=== PATIENT | female | born 1975 | race Caucasian/White ===

== ENCOUNTER 2019-02-23 05:03 | Inpatient (IN) | payer MEDICAID ==
[2019-02-23] MEDS ORDERED: Sodium Chloride 0.9% 1,000 ML IV ONE (05:35)
[2019-02-23 06:00] LABS: BASO % 0.7 % (0.0-2.0); EOS # 0.1 K/uL (0.0-0.7); EOS % 2.5 % (0.0-4.0); HEMOGLOBIN 11.7 g/dL (11.0-16.0); LYMPH # 1.8 K/uL (1.0-4.3); LYMPH % 34.8 % (20.0-40.0); MEAN CELL VOLUME 84.1 fL (81.0-99.0); MEAN CORPUSCULAR HEMOGLOBIN 28.4 pg (27.0-31.0); MEAN CORPUSCULAR HGB CONC 33.8 g/dL (33.0-37.0); MEAN PLATELET VOLUME 9.2 fL (7.2-11.7); MONO # 0.3 K/uL (0.0-0.8); MONO % 6.4 % (0.0-10.0); NEUT # 2.8 K/uL (1.8-7.0); NEUT % 55.6 % (50.0-75.0); NRBC % 0.1 % (0.0-2.0); RBC 4.1 Mil/uL (3.80-5.20); RED CELL DISTRIBUTION WIDTH 13.6 % (11.5-14.5); WHITE BLOOD COUNT 5.1 K/uL (4.8-10.8)
--- NOTE | 2019-02-23 06:07 | C.PDOC ---
History Of Present Illness 43 y/o female. approx 10 weeks preg with a missed per pt, presents with sudden onset heavy vaginal bleeding since 2 am, using 4 pads at a time and passing large clots.unsire if any tissue passed. some abdominal pain. Time Seen by Provider: 02/23/19 05:17 Chief Complaint (Nursing): Female Genitourinary History Per: Patient History/Exam Limitations: no limitations Onset/Duration Of Symptoms: Hrs (4) Current Symptoms Are (Timing): Still Present Severity: Moderate Quality Of Discomfort: Cramping Associated Symptoms: denies: Fever, Chills, Nausea Alleviating Factors: None Abnormal Vaginal Bleeding: Yes : 5 Para: 1 Past Medical History Reviewed: Historical Data, Nursing Documentation, Vital Signs Vital Signs: Last Vital Signs Temp 98.3 F 02/23/19 05:10 Pulse 86 02/23/19 05:10 Resp 14 02/23/19 05:10 BP 140/92 H 02/23/19 05:10 Pulse Ox 98 02/23/19 05:10 Family History: States: Unknown Family Hx - Social History Hx Alcohol Use: No Hx Substance Use: No - Immunization History Hx Tetanus Toxoid Vaccination: Yes Hx Influenza Vaccination: No Hx Pneumococcal Vaccination: No Review Of Systems Constitutional: Negative for: Fever, Chills Cardiovascular: Negative for: Chest Pain Respiratory: Negative for: Cough Gastrointestinal: Positive for: Abdominal Pain Genitourinary: Positive for: Vaginal Bleeding, Pelvic Pain Skin: Negative for: Rash Neurological: Negative for: Weakness, Numbness Physical Exam - Physical Exam Appears: Non-toxic, Other (anxous) Skin: Warm, Dry, No Pale Head: Atraumatic, Normacephalic Cardiovascular: Rhythm Regular Respiratory: No Decreased Breath Sounds Gastrointestinal/Abdominal: Bowel Sounds, Soft, Tenderness (mild., lower abdomen), No Distention, No Guarding, No Rebound Pelvic: Normal External Exam, Vaginal Bleeding (copious with clots), Cervix Open (finger), Other (chaperoned by pt's female family member and YAO Sousa) ED Course And Treatment - Laboratory Results Result Diagrams: 02/23/19 05:56 02/23/19 05:56 O2 Sat by Pulse Oximetry: 98 Medical Decision Making Medical Decision Making: pt with recent dx of missed ab, now with sudden bleeding and passage of clots, some cramps, discussed with Dr Hart; will start on pitocin drip and she will come see patient. Disposition Discussed With : Feli A Tanner Doctor Will See Patient In The: Hospital - Disposition Disposition: HOSPITALIZED Disposition Time: 06:48 Condition: GOOD Forms: [facility] ([place]) - Clinical Impression Clinical Impression: Incomplete
[2019-02-23 06:26] LABS: ALB/GLOB RATIO 1.3 (1.0-2.1); ALBUMIN 3.8 g/dL (3.5-5.0); ALT/SGPT 20 U/L (9-52); AST/SGOT 19 U/L (14-36); BLOOD UREA NITROGEN 12 mg/dL (7-17); CALCIUM 9.2 mg/dl (8.6-10.4); GFR NON-AFRICAN AMERICAN > 60
--- NOTE | 2019-02-23 07:31 | CP.PCM.HP ---
History of Present Illness - History of Present Illness History of Present Illness: 43 y.o. , LMP , EGA 14 weeks, known missed presents c/o heavy vaginal bleeding onset 0200 hours. Has passed clots and soaked sanitary napkins since then. Denies dizzinesss, lightheadedness, chest pains. HPI: first saw priv Ob in [place] beginning/middle of January for this . ... "I should have been 11 weeks, and they said there was no heart beat". Patient was waiting to pass the products spontaneously. Patient was to follow up; waiting for insurance to become effective. Same becomes effective 02/25/19; has appointment for 03/01/19. Reports onset cramping "all day yesterday" and now stronger. P Ob: 2008, del at 24 weeks, male, [facility], did not survive "I just started to dilate, and he came quickly". 2010, elective primary C/S, female, 7+lb, [place], Gest HTN. No other complications. 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 Denies STIs, myomata, abnormal Pap. Last Pap Jan, 2019 PMH: Borderline HTN, does not see a medical provider on a regular basis PSH: C/S NKDA Meds: stopped PNV when diagnosed with non viable in January Soc Hx: denies tobacco, illicit drug or EtOH use. 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 no med issues. Father age 69 - complication from surgery on his legs; h/o DM. Mat aunt - unk Cancer Present on Admission - Present on Admission Any Indicators Present on Admission: No Review of Systems - Review of Systems All systems: reviewed and no additional remarkable complaints except - Reproductive: Female Reproductive:Female: As Per HPI Past Patient History - Infectious Disease Hx of Infectious Diseases: None - Tetanus Immunizations Tetanus Immunization: Unknown - Past Medical History & Family History Past Medical History?: Yes Pertinent Family History: DM - Past Social History Smoking Status: Never Smoked Drugs: Denies Home Situation {Lives}: With Family - CARDIAC Hx Cardiac Disorders: No Hx Hypertension: Yes (Mild, borderline) - PULMONARY Hx Respiratory Disorders: No - NEUROLOGICAL Hx Neurological Disorder: No - HEENT Hx HEENT Problems: No - RENAL Hx Chronic Kidney Disease: No - ENDOCRINE/METABOLIC Hx Endocrine Disorders: No - HEMATOLOGICAL/ONCOLOGICAL Hx Blood Disorders: No - INTEGUMENTARY Hx Dermatological Problems: No - MUSCULOSKELETAL/RHEUMATOLOGICAL Hx Musculoskeletal Disorders: No - GASTROINTESTINAL Hx Gastrointestinal Disorders: No - GENITOURINARY/GYNECOLOGICAL Hx Genitourinary Disorders: No - PSYCHIATRIC Hx Psychophysiologic Disorder: No Hx Substance Use: No - SURGICAL HISTORY Hx Section: Yes (2010) - ANESTHESIA Hx Anesthesia: Yes Meds Allergies/Adverse Reactions: Allergies Allergy/AdvReac Type Severity Reaction Status Date / Time No Known Allergies Allergy Unverified 02/23/19 05:14 Physical Exam - Constitutional Appears: Well, No Acute Distress - Head Exam Head Exam: NORMOCEPHALIC - ENT Exam ENT Exam: Mucous Membranes Moist - Neck Exam Neck exam: Positive for: Full Rom - Respiratory Exam Respiratory Exam: NORMAL BREATHING PATTERN - Cardiovascular Exam Cardiovascular Exam: REGULAR RHYTHM - GI/Abdominal Exam GI & Abdominal Exam: Soft (Non tender. ) - Rectal Exam Rectal Exam: Deferred ([place] blood on perineum. Speculum exam: moderate amount of blood and clots, Attemtps made to evacuate vagnal vault. approximately 50mL retrieved. Cervix dilated 2 cm. POCs palpated at external os. Uterus, anteverted approx 14 weeks) - Exam Additional comments: Blood per perineum. Speculum exam: moderate amount of blood and clots. Attempts made to remove same. Cervix dialted to 2 cm; POCs palpated at external os. Anteverted uterus, approx 14 weeks - Extremities Exam Extremities exam: Positive for: full ROM, normal inspection - Back Exam Back exam: NORMAL INSPECTION - Neurological Exam Neurological exam: Oriented x3 - Psychiatric Exam Psychiatric exam: Normal Affect, Normal Mood - Skin Skin Exam: Dry, Intact, Normal Color, Warm Results - Vital Signs Recent Vital Signs: Last Vital Signs Temp 98.3 F 02/23/19 05:10 Pulse 86 02/23/19 05:10 Resp 14 02/23/19 05:10 BP 140/92 H 02/23/19 05:10 Pulse Ox 98 02/23/19 06:49 - Labs Result Diagrams: 02/23/19 05:56 02/23/19 05:56 Labs: Laboratory Results - last 24 hr 02/23/19 02/23/19 02/23/19 05:56 05:56 05:56 WBC 5.1 RBC 4.10 Hgb 11.7 Hct 34.5 MCV 84.1 MCH 28.4 MCHC 33.8 RDW 13.6 Plt Count 220 MPV 9.2 Neut % (Auto) 55.6 Lymph % (Auto) 34.8 [place] % (Auto) 6.4 Eos % (Auto) 2.5 Baso % (Auto) 0.7 Neut # (Auto) 2.8 Lymph # (Auto) 1.8 [place] # (Auto) 0.3 Eos # (Auto) 0.1 Baso # (Auto) 0.0 Sodium 135 Potassium 3.7 Chloride 103 Carbon Dioxide 22 Anion Gap 14 BUN 12 Creatinine 0.5 L Est GFR ( Amer) > 60 Est GFR (Non-Af Amer) > 60 Random Glucose 118 H Calcium 9.2 Total Bilirubin 0.3 AST 19 ALT 20 Alkaline Phosphatase 57 Total Protein 6.8 Albumin 3.8 Globulin 3.0 Albumin/Globulin Ratio 1.3 Beta HCG, Quant 1966.70 Blood Type B POSITIVE Assessment & Plan - Assessment and Plan (Free Text) Assessment: 43 y.o. P1121, incomplete with known missed . H/O gest HTN, possibly chronic HTN. Patient counseled for uterine evacuation with curettage; possible risks/complications d/w patient. Consents obtained, dated, witnessed and placed in the chart. Patient last ate 2200 hours; drank juice approx 0200 hours. Patient in stable condition. Rh (+). 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 - Date & Time Date: 02/23/19 Time: 07:43
--- NOTE | 2019-02-23 09:00 | US ---
Pelvic ultrasound HISTORY: Vaginal bleeding. Missed . COMPARISON: None available. TECHNIQUE: Real-time sonography was performed through the pelvis utilizing transabdominal and transvaginal techniques. Findings: Positive beta HCG level of 1965. Uterus: 13.2 x 7.1 x 8.8 centimeters. Heterogeneous echotexture. Anteverted. Endometrium appears thickened and heterogeneous measuring 3.15 centimeters. Prominent echogenic debris with color flow noted within the endometrium extending to the cervix. No discrete intrauterine . No free fluid in the pelvic cul-de-sac. Right ovary: 4.3 x 2.4 x 3.4 centimeters. Normal flow. Left ovary: 3.4 x 2.3 x 2.8 centimeters. Normal flow. Impression: Positive HCG level of 1965. No discrete intrauterine identified. In the setting of a positive test and lack of discrete intrauterine , considerations include missed versus early versus ectopic . Clinical correlation. Markedly thickened endometrium measuring up to 3.15 centimeters with associated echogenic debris as well as color flow noted within the endometrial cavity extending to the cervix. These findings would be concerning for a missed with possible residual retained products of conception. Clinical correlation. Continued interval follow-up if clinically indicated.
[2019-02-23] MEDS ORDERED: Midazolam 2 MG/2 ML VIAL ONE (09:18)
[2019-02-23] MEDS ORDERED: Propofol 10 mg/ml Inj (20 ML) ONE ×2 (09:21→09:48)
--- NOTE | 2019-02-23 09:56 | PCM.SURG1 ---
Surgeon's Initial Post Op Note - Surgeon's Notes Surgeon: Sandra Brand DO Cigar Inspector: None Type of Anesthesia: General Endo Anesthesia Administered By: Dr. Story, Pre-Operative Diagnosis: 10-12 weeks Missed Operative Findings: External genitalia WNl. Cervix didlated to about 2-3 cms with tissue at the os. Uterus about 12-14 weeks size. Unable to palpate adnexa secondary to patient's body habitus. Mild to moderate vaginal bleeding with blood clots Post-Operative Diagnosis: Missed Operation Performed: Suction Dilatation and Curettage Specimen/Specimens Removed: Products of Conception Estimated Blood Loss: EBL {In ML}: 200 Blood Products Given: N/A Drains Used: No Drains Post-Op Condition: Good Date of Surgery/Procedure: 02/23/19 Time of Surgery/Procedure: 09:00
[2019-02-23 09:59] LABS: MEAN CELL VOLUME 85.3 fL (81.0-99.0); MEAN CORPUSCULAR HGB CONC 32.9 g/dL (33.0-37.0); RBC 3.41 Mil/uL (3.80-5.20); RED CELL DISTRIBUTION WIDTH 13.2 % (11.5-14.5); WHITE BLOOD COUNT 6.5 K/uL (4.8-10.8)
[2019-02-23] MEDS ORDERED: Oxytocin 30 UNIT in NS 500 ml 30 UNITS/500 ML BAG IV SCH ×2 (10:00→10:15)
[2019-02-23] MEDS ORDERED: ePHEDrine 50 mg/ml Inj ONE (10:02)
[2019-02-23] MEDS ORDERED: Phenylephrine 10 mg/ml Inj ONE (10:02)
[2019-02-23 10:08] LABS: HEMOGLOBIN 9.6 g/dL (11.0-16.0)
[2019-02-23] MEDS ORDERED: HYDROmorphone 0.5 mg/0.5 ml ISec IVP PRN (10:14)
[2019-02-23] MEDS ORDERED: Oxycodone/Acetaminophen 5/325 mg Tab PO PRN (11:30)
[2019-02-23 17:50] LABS: HEMOGLOBIN 9.1 g/dL (11.0-16.0); MEAN CELL VOLUME 83.2 fL (81.0-99.0); MEAN CORPUSCULAR HEMOGLOBIN 28.3 pg (27.0-31.0); MEAN PLATELET VOLUME 9.3 fL (7.2-11.7); RBC 3.2 Mil/uL (3.80-5.20); RED CELL DISTRIBUTION WIDTH 13.5 % (11.5-14.5); WHITE BLOOD COUNT 7.3 K/uL (4.8-10.8)
[2019-02-24 07:43] LABS: BASO % 0.8 % (0.0-2.0); EOS # 0.1 K/uL (0.0-0.7); EOS % 1.9 % (0.0-4.0); HEMOGLOBIN 7.9 g/dL (11.0-16.0); LYMPH # 1.8 K/uL (1.0-4.3); LYMPH % 34.3 % (20.0-40.0); MEAN CELL VOLUME 83.8 fL (81.0-99.0); MEAN CORPUSCULAR HEMOGLOBIN 28.5 pg (27.0-31.0); MEAN CORPUSCULAR HGB CONC 34.1 g/dL (33.0-37.0); MEAN PLATELET VOLUME 9.1 fL (7.2-11.7); MONO # 0.3 K/uL (0.0-0.8); MONO % 5.7 % (0.0-10.0); NEUT % 57.3 % (50.0-75.0); NRBC % 0.1 % (0.0-2.0); RBC 2.76 Mil/uL (3.80-5.20); RED CELL DISTRIBUTION WIDTH 13.4 % (11.5-14.5); WHITE BLOOD COUNT 5.3 K/uL (4.8-10.8)
--- NOTE | 2019-02-24 09:24 | CP.PCM.PN ---
<Thomas Biswas M - Last Filed: 02/24/19 09:35> Subjective - Date & Time of Evaluation Date of Evaluation: 02/24/19 Time of Evaluation: 09:23 - Subjective Subjective: Pt is a 43 y/o female postop day 1 s/p D&C following known missed with c/o heavy vaginal bleeding. Patient is feeling much better today. Patient slept well over night, passing flatus, and moving bowels. Patient reports neck pain and headache since yesterday. Patient denies abdominal or pelvic pain, fevers/chills, nausea/vomiting, chest pain, and diarrhe a/constipation. Patient feels a little weak, but otherwise denies dizziness or feeling faint. Patient reports good appetite and has been able to eat and move around in her room. Objective - Vital Signs/Intake and Output Vital Signs (last 24 hours): Temp Pulse Resp BP Pulse Ox 97.1 F L 98 H 20 129/75 99 02/24/19 04:00 02/24/19 04:00 02/24/19 04:00 02/24/19 04:00 02/24/19 04:00 Intake and Output: 02/24/19 02/24/19 06:59 18:59 Intake Total 1150 Balance 1150 - Medications Medications: Current Medications Ibuprofen (Motrin Tab) 800 mg PO Q6H KIA Last Admin: 02/24/19 05:37 Dose: 800 mg Oxycodone/Acetaminophen (Percocet 5/325 Mg Tab) 1 tab PO Q6H PRN PRN Reason: Pain, severe (8-10) Stop: 02/26/19 11:31 - Labs Labs: 02/24/19 07:29 02/23/19 05:56 - Constitutional Appears: Well, Non-toxic, No Acute Distress - Head Exam Head Exam: ATRAUMATIC, NORMAL INSPECTION, NORMOCEPHALIC - Respiratory Exam Respiratory Exam: Clear to Ausculation Bilateral. absent: Rales, Rhonchi, Wheezes - Cardiovascular Exam Cardiovascular Exam: Tachycardia, REGULAR RHYTHM, +S1, +S2. absent: Gallop, Murmur - Extremities Exam Extremities Exam: Normal Inspection. absent: Calf Tenderness, Pedal Edema, Tenderness - Psychiatric Exam Psychiatric exam: Normal Affect, Normal Mood Assessment and Plan - Assessment and Plan (Free Text) Assessment: postop day 1 s/p D&C for missed and heavy vaginal bleeding. 1. Anemia s/p missed 2. Gestational hypertension Plan: 1. PO iron supplement 2. Discharge home 3. Recommend patient follow up with her PCP for hypertension. <Sandra Brand - Last Filed: 02/24/19 18:29> Objective - Vital Signs/Intake and Output Vital Signs (last 24 hours): Temp Pulse Resp BP Pulse Ox 98.2 F 110 H 18 140/87 97 02/24/19 17:30 02/24/19 17:30 02/24/19 17:30 02/24/19 17:30 02/24/19 17:30 Intake and Output: 02/24/19 02/24/19 06:59 18:59 Intake Total 1150 Balance 1150 - Labs Labs: 02/24/19 07:29 02/23/19 05:56 Assessment and Plan - Assessment and Plan (Free Text) Plan: Stable and Satisfactory condition and recovery Anesthesia consultation for Neck pain appreciated and will follow this recommendations ie, Regular Motrin po Q 6 hrs x 4-5 days with Hot and Cold compresses. Acute Anemia secondary to acute blood loss/Asymptomatic and VSS Discharged home with instructions and Rx for Motrin, Percocet, Feosol and Colace TID
--- NOTE | 2019-02-24 15:50 | CP.PCM.CON ---
History of Present Illness - History of Present Illness History of Present Illness: Asked to evaluate pt w/ neck pain sp suction d&c. Pt POD1. States pain was 8 out of 10 earlier today but currently is 5/10. Pain improving with heat and motrin. Heat helped more than ice packs. Pt states never had this pain before. On exam neck is nontender to touch, pt appears comfortable in no acute distress, FROM of neck and neurologically intact with no numbness/weakness/tingling in either arm. Likely musculoskeletal pain unrelated to having general anesthesia. Recommend continuing heat packs/ motrin PRN. Consider Percocet PRN. Consider MRI PRN to evaluate soft tissues of neck. Past Patient History - Infectious Disease Hx of Infectious Diseases: None - Tetanus Immunizations Tetanus Immunization: Unknown - Past Medical History & Family History Past Medical History?: Yes - Past Social History Smoking Status: Never Smoked Drugs: Denies Home Situation {Lives}: With Family - CARDIAC Hx Cardiac Disorders: No Hx Hypertension: Yes (Mild, borderline) - PULMONARY Hx Respiratory Disorders: No - NEUROLOGICAL Hx Neurological Disorder: No - HEENT Hx HEENT Problems: No - RENAL Hx Chronic Kidney Disease: No - ENDOCRINE/METABOLIC Hx Endocrine Disorders: No - HEMATOLOGICAL/ONCOLOGICAL Hx Blood Disorders: No - INTEGUMENTARY Hx Dermatological Problems: No - MUSCULOSKELETAL/RHEUMATOLOGICAL Hx Musculoskeletal Disorders: No - GASTROINTESTINAL Hx Gastrointestinal Disorders: No - GENITOURINARY/GYNECOLOGICAL Hx Genitourinary Disorders: No - PSYCHIATRIC Hx Psychophysiologic Disorder: No Hx Substance Use: No - SURGICAL HISTORY Hx Section: Yes (2010) - ANESTHESIA Hx Anesthesia: Yes Meds Home Medications: Home Medication List Medication Instructions Recorded Confirmed Type Docusate [Colace] 100 mg PO TID #90 cap 02/24/19 Rx Ferrous Sulfate [Feosol] 325 mg PO TID #90 tab 02/24/19 Rx Ibuprofen [Motrin Tab] 800 mg PO Q6H PRN #24 tab 02/24/19 Rx Allergies/Adverse Reactions: Allergies Allergy/AdvReac Type Severity Reaction Status Date / Time No Known Allergies Allergy Unverified 02/23/19 05:14 - Medications Medications: Current Medications Ibuprofen (Motrin Tab) 800 mg PO Q6H KIA Last Admin: 02/24/19 11:56 Dose: 800 mg Oxycodone/Acetaminophen (Percocet 5/325 Mg Tab) 1 tab PO Q6H PRN PRN Reason: Pain, severe (8-10) Stop: 02/26/19 11:31 Results - Vital Signs Recent Vital Signs: Last Vital Signs Temp 97.1 F L 02/24/19 04:00 Pulse 98 H 02/24/19 04:00 Resp 20 02/24/19 04:00 BP 129/75 02/24/19 04:00 Pulse Ox 99 02/24/19 04:00 - Labs Result Diagrams: 02/24/19 07:29 02/23/19 05:56 Labs: Laboratory Results - last 24 hr 02/23/19 02/24/19 17:43 07:29 WBC 7.3 5.3 RBC 3.20 L 2.76 L Hgb 9.1 L 7.9 L Hct 26.6 L 23.1 L MCV 83.2 D 83.8 MCH 28.3 28.5 MCHC 34.0 34.1 RDW 13.5 13.4 Plt Count 234 186 MPV 9.3 9.1 Neut % (Auto) 57.3 Lymph % (Auto) 34.3 [place] % (Auto) 5.7 Eos % (Auto) 1.9 Baso % (Auto) 0.8 Neut # (Auto) 3.0 Lymph # (Auto) 1.8 [place] # (Auto) 0.3 Eos # (Auto) 0.1 Baso # (Auto) 0.0
[2019-02-24 17:30] VITALS: BP 140/87; PULSE 110; RESP 18; TEMP 98.2; O2SAT 97
--- NOTE | 2019-03-01 06:42 | OP ---
PROCEDURE DATE: 02/23/2019 PREOPERATIVE DIAGNOSIS: A 10-12 weeks missed with retained products of conception. POSTOPERATIVE DIAGNOSIS: A 10-12 weeks missed with retained products of conception. PROCEDURE: 1. Exam under anesthesia. 2. Suction, dilatation and curettage. 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 ANESTHESIOLOGIST: Julito Story MD ANESTHESIA: General endotracheal. INDICATIONS FOR SURGERY: Cervix was dilated to about 2 to 3 cm with tissue at the os and mild to moderate vaginal bleeding with blood clots. FINDINGS: As stated above, the external genitalia was within normal limits. The cervix was dilated to about 2 to 3 cm with tissue at the os. The uterus was about 12 to 14 weeks size and irregular. Unable to palpate the adnexa secondary to the patient's body habitus. SPECIMEN: Products of conception. ESTIMATED BLOOD LOSS: 200 mL. COMPLICATIONS: None. PREOPERATIVE NOTE: The procedure, the risks and the possible complications were fully reviewed with the patient to include but not exclusively hemorrhage, infection or injury to bowel, bladder, bilateral tubes and ovaries, uterus, internal blood vessels or any internal organs, and the patient verbalized understanding, requested to proceed and signed the consent. DESCRIPTION OF PROCEDURE: The patient was taken to the operating room, and she was given a general form of anesthesia. She was sterilely prepped and draped in the usual manner for the above-named procedure. The time-out was then carried out as indicated, and the exam under anesthesia was then performed with the findings as noted above. A heavy-weighted speculum was placed in the posterior aspect of the vagina with the aid of the right angle retractor. The anterior lip of the cervix was grasped with a single-tooth tenaculum. The cervix was then gradually dilated to admit a medium size 8 suction curette, and this was utilized to suction the endometrial cavity at all 4 quadrants and in a systematic manner. The suction curette was then removed, and with a regular medium size endometrial curette, we ascertained complete emptiness of the endometrial cavity, and the procedure was terminated. The patient was receiving Pitocin infusion through the IV, and the hemostasis was adequate. At this time, the procedure was terminated. The patient tolerated the procedure well, and she went to the recovery room in stable and satisfactory condition. All instruments and sponges were accounted for. Sandra Brand DO [facility] # [id number]
== END 2019-02-24 17:35 | disposition home or self-care (01) | DRG 544 ==
LOC: C.4M 05:03 → C.ER 05:03 → C.SDS 06:59 → C.4M 10:35
PROVIDERS: ADMIT Obstetrics & Gynecology; ATTEND Obstetrics & Gynecology
PROC: 10D17ZZ Extraction of Products of Conception, Retained, Via Natural or Artificial Opening (ICD-10-PCS; principal; 2019-02-23 07:30)
DX: O03.4 Incomplete spontaneous abortion without complication (principal); Z3A.10 10 weeks gestation of pregnancy